=== PATIENT | male | born 1970 | race Caucasian/White ===

== ENCOUNTER 2018-04-01 18:38 | Inpatient (IN) | payer OTHER, MEDICAID ==
[~2018-04-01] VITALS: Ht 190.5 cm; Wt 88.0 kg
--- NOTE | ~2018-04-01 | DS ---
PATIENT:BHARATI AGUERO II :72 MEDICAL RECORD: [id number] DISCHARGE SUMMARY ADMISSION DATE: 04/01/18 DISCHARGE DATE: 04/03/18 DATE OF DISCHARGE: 04/03/2018 DIAGNOSES: 1. Acute anterior myocardial infarction. 2. Coronary artery disease. 3. Hyperlipidemia. 4. Percutaneous transluminal coronary angioplasty and stent to the left anterior descending and right coronary artery this admission. HOSPITAL COURSE: Mr. Aguero presents with an acute anterior myocardial infarction. Cardiac catheterization revealed 3-vessel coronary artery disease, underwent PTCA and stent of the RCA and LAD, was discharged home with the addition of aspirin, Plavix, Pravachol to his medical regimen. No beta-malorie was undertaken secondary to bradycardia. He did have ventricular tachycardia. At the time of the acute event, he was placed on Cordarone; however, this was discontinued due to the bradycardia. We will follow up next week for PTCA and stent of the circumflex. TRANSINT:[id number] Voice Confirmation ID: [id number] DOCUMENT ID: [id number] LUPE BEST MD at 0924 CC: [id number] DICTATION DATE: 04/03/18 1212 PARCEL CONTRACTOR: 04/04/18 0120 DIS IN 04/03/18 [address] [place] [address]
--- NOTE | ~2018-04-01 | OP ---
PATIENT NAME: BHARATI BATISTA II MEDICAL RECORD: [id number] :72 LOCATION:D.M2 D.2123 ADMISSION DATE:04/01/18 SURGEON: LUPE BEST MD DATE OF OPERATION: 04/01/2018 PROCEDURES: 1. Aortofemoral runoff. 2. Abdominal aortography. INDICATION: Claudication and peripheral vascular disease. PROCEDURE IN DETAIL: After informed consent was obtained and after a detailed description of risks, benefits as well as alternative therapies, the patient elected to proceed with aortofemoral runoff. The right femoral area had a preexisting sheath. All catheters exchanged through this sheath. FINDINGS: Abdominal aortography was performed. The catheter was pulled down for aortofemoral runoff. Abdominal aortography reveals no significant known aortic disease, no dissection or aneurysm formation. LEFT LEG: A. Iliac: The common iliac is devoid of disease. The external iliac has an ulcerated 70-80% stenosis in the proximal vessel. The internal iliac has no significant disease. B. Femoral system: The common superficial and deep femoral have moderate irregularities, but no flow-limiting stenosis. C. Popliteal and infrapopliteal vessels are widely patent with good 3-vessel runoff to the foot. RIGHT LEG: A. Iliac: The common iliac has 30% stenosis; however, this is not flow limiting. The internal iliac and external iliacs have mild plaquing, but not greater than 20%. B. Femoral system: The common, superficial and deep femoral have mild plaquing, none greater than 20%, no flow-limiting stenosis. Popliteal and infrapopliteal vessels are patent with good 3-vessel runoff on to the foot. OVERALL IMPRESSION: Ulcerated stenosis of the external iliac, left that is amenable to transcatheter revascularization in the future. TRANSINT:[id number] Voice Confirmation ID: [id number] DOCUMENT ID: [id number] LUPE BEST MD at 0924 CC: [id number] DICTATION DATE: 04/01/181954 ROADABILITY MACHINE OPERATOR: 04/02/182028 DIS IN 04/03/18 [facility] [address] [id number]
--- NOTE | ~2018-04-01 | OP ---
PATIENT NAME: BHARATI BATISTA II MEDICAL RECORD: [id number] :72 LOCATION:D.M2 D.3 ADMISSION DATE:04/01/18 SURGEON: LUPE BEST MD DATE OF OPERATION: 04/01/2018 PROCEDURES: 1. PTCA stent LAD. 2. Left heart catheterization. 3. Selective coronary angiography. 4. Left ventriculogram. INDICATION: Acute anterior myocardial infarction. PROCEDURE IN DETAIL: After informed consent was obtained and after a detailed description of the risks, benefits as well as alternative therapies, the patient elected to proceed with angiogram and angioplasty. The right femoral area was prepped and draped in normal sterile fashion. Right femoral artery was cannulated via modified Seldinger technique with placement of 6-Scottish sheath. All catheters exchanged through this sheath. FINDINGS: The left ventriculogram was performed in standard 30-degree GUERRERO view reveals preserved cardiac wall motion throughout all segments, anteroapical hypokinesis, ejection fraction still at 60%. SELECTIVE CORONARY ANGIOGRAPHY: 1. Left main is with no significant angiographic disease. 2. Left anterior descending is totally occluded acutely proximally. 3. Left circumflex has multiple areas of 80+ percent stenosis. 4. Right coronary is a large, dominant vessel with 80+ percent stenosis mid vessel throughout. PTCA STENT OF THE LAD: Stents used were 3.0 x 26 mm Integrity and 2.25 x 15 mm Sadi. Result was 0% residual stenosis. OVERALL IMPRESSION: Successful percutaneous transluminal coronary angioplasty stent of the left anterior descending going from 100% initial stenosis with an acute myocardial infarction to 0% residual stenosis. PLAN: Percutaneous transluminal coronary angioplasty stent of the left circumflex and RCA in the near future. TRANSINT:[id number] Voice Confirmation ID: [id number] DOCUMENT ID: [id number] LUPE BEST MD at 0924 CC: [id number] DICTATION DATE: 04/01/181954 WELL SHOOTER: 04/01/182121 DIS IN 04/03/18 [address] [id number]
--- NOTE | ~2018-04-01 | MORECARE ---
CASE MANAGEMENT DISCHARGE SUMMARY PATIENT: BHARATI BATISTA II UNIT: [id number] ADM DATE: 04/01/18 AGE: 47 : 72 SEX: M ROOM/BED: D.2123 AUTHOR: SAMANTA ACEVEDO PHYSICIAN: REFERRING PHYSICIAN: LUPE BEST MD DATE OF SERVICE: 04/03/18 Discharge Plan Patient Name: BHARATI BATISTA [facility] [facility] 1970 Planned Disposition: Home Anticipated Discharge Date: 04/03/18 Discharge Date: Expected LOS: 2 Initial Reviewer: [email or web address] Initial Review Date: 04/03/2018 Generated: 04/03/18 2:36 pm DCPIA - Discharge Planning Initial Assessment Updated by [email or web address]: Brian Tuttle on 04/03/18 1:32 pm * Is the patient Alert and Oriented? Yes * How many steps to enter\exit or inside your home? * PCP NONE PATIENT REPORTS UNDERSTANDING AND ABILITY TO CONTACT HIS INSURANCE COMPANY FOR IN NETWORK PROVIDERS. * Pharmacy [facility] [address] * Preadmission Environment Home with Family * ADLs Independent * Equipment None * Other Equipment NO MEDICAL EQUIPMENT PROVIDER PREFERENCE * List name and contact numbers for known caregivers / representatives who currently or will assist patient after discharge: OSBALDO BATISTA, SPOUSE, * Verbal permission to speak to the caregivers and representatives has been obtained from the patient. Yes * Community resources currently utilized None * Please name any agencies selected above. NONE * Additional services required to return to the preadmission environment? No * Can the patient safely return to the preadmission environment? Yes * Has this patient been hospitalized within the prior 30 days at any hospital? No Last DP export: 04/03/18 12:18 Patient Name: BHARATI BATISTA Page 51921 at 1336 All edits/amendments must be made on the electronic document DICTATION DATE: 04/03/181335 CASINO CONTROLLER: LAURA 04/03/181335 RPT#: [id number] DC DATE: STATUS: ADM IN [facility] [address] [place] [address] END OF REPORT
--- NOTE | ~2018-04-01 | MORECARE ---
CASE MANAGEMENT DISCHARGE SUMMARY PATIENT: BHARATI BATISTA II UNIT: [id number] ADM DATE: 04/01/18 AGE: 47 : 72 SEX: M ROOM/BED: D.2123 AUTHOR: SAMANTA ACEVEDO PHYSICIAN: REFERRING PHYSICIAN: LUPE BEST MD DATE OF SERVICE: 04/03/18 Discharge Plan Patient Name: BHARATI BATISTA [facility] [facility] 1970 Planned Disposition: Home Anticipated Discharge Date: 04/03/18 Discharge Date: Expected LOS: 2 Initial Reviewer: [email or web address] Initial Review Date: 04/03/2018 Generated: 04/03/18 2:18 pm Patient Name: BHARATI BATISTA Page 69362 at 1318 All edits/amendments must be made on the electronic document DICTATION DATE: 04/03/18 1318 PATIENT FINANCIAL SERVICES SPECIALIST: LAURA 04/03/18 1318 RPT#: [id number] DC DATE: STATUS: ADM IN [facility] [address] [place] [address] END OF REPORT
--- NOTE | ~2018-04-01 | HEMODYNAMI ---
PATIENT:BHARATI BATISTA II MEDICAL RECORD: [id number] : 72 LOCATION:DCALI ADMISSION DATE: 04/01/18 Generatedon:04/01/201819:59 Patient name: BHARATI BATISTA Patient #: [id number] SSN: DO B: 1970 Date of study: 04/01/2018 Page: Of Hemodynamic Procedure Report Patient Data Patient Demographics Procedure consent was obtained First Name: BHARATI Gender: Male Last Name: LESTER Suffix: KOURTNEY Middle Initial: R : 1970 Patient #: [id number] Age: 47 year(s) Race: Unknown Additional ID: [id number] Contact details [address]: [address] [place] [address] ROAD State: [place] City: [place] Zip code: [address] Admission Admission Data Admission Date: 04/01/2018 Admission Time: 18:38 Procedure Procedure Types Cath Procedure Diagnostic Procedure LHC LHC w/Coronaries PCI Procedure AMI/SVG/METER TESTER PRIMARY PTCA or Stent AMI-BMS/DAYRON Initial Peripheral Cath Diagnostic Procedure Dental Laboratory Manager Peripheral Procedures Hyavw-Hrveieu-Tic-Off Procedure Description Procedure Date Procedure Date: 04/01/2018 Procedure Start Time: 19:34 Procedure End Time: 19:59 Procedure Staff Name Function Gadiel Ge MD Performing Physician Isai Mendez RT Monitor Imer Kaba RN Nurse Marcella Ewing RT Scrub Aicha Villarreal RN Nurse Procedure Data Cath Procedure Fluoroscopy Diagnostic fluoroscopy Total fluoroscopy Time: 4.4 time: 4.4 min min Diagnostic fluoroscopy Total fluoroscopy dose: 693 dose: 693 mGy mGy Contrast Material Contrast Material Type Amount (ml) Isovue 300 148 Entry Location Entry Primary Successful Side Size Upsize Upsize Entry Closure Succes sful Closure Location (Fr) 1 (Fr) 2 (Fr) Remarks Device Remarks Femoral Right 6 Fr Exoseal artery Short Estimated blood loss: 10 ml Diagnostic catheters Device Type Used For End Catheter Placement MULTIPACK 3DRC 5Fr Procedure catheter MULTIPACK Pigtail 5 Fr Procedure catheter Procedure Complications No complications Procedure Medications Medication Administration Route Dosage 0.9% NaCl I.V. 100 ml/hr Oxygen etCO2 Nasal cannula 2 l/min Lidocaine 2% added to field 20 Heparin Flush Bag added to field 2 bags (1000units/500ml NS) Integrilin (Bolus I.V. 7.3 ml 2mg/ml) Versed I.V. 2 mg Fentanyl I.V. 100 mcg Heparin Bolus I.V. 3000 units Amiodarone Loading 150 mg Dose (150mg/100ml D5W) unlisted medication I.V. drip 1 mg/min Versed I.V. 1 mg Hemodynamics Rest Heart Rate: 64 (bpm) Pressure Samples Time Site Value (mmHg) Purpose Heart Use Rate(bpm) 19:45 AO 82/48(63) Snapshot 71 Snapshots Pre Cath Intra NCS Post Cath Vital Signs Time Heart Resp SPO2 etCO2 NIBP (mmHg) Rhythm Pain Status Sedation Rate (ipm) (%) (mmHg) Level (bpm) 19:30:56 65 12 99 30 138/88(112) NSR w/ ST 10 (11) , 10(A) Elevation Unimaginable unspeakable 19:35:10 66 19 99 28 130/90(108) NSR w/ ST 10 (11) , 10(A) Elevation Unimaginable unspeakable 19:39:26 59 13 97 30 116/69(97) NSR w/ ST 0 (11) , No 9(A) Elevation pain 19:43:38 71 13 98 32 99/62(77) NSR w/ ST 0 (11) , No 9(A) Elevation pain 19:47:44 70 13 96 11.3 95/65(73) NSR 0 (11) , No 9(A) pain 19:51:48 67 14 98 0 99/63(80) NSR 0 (11) , No 10(A) pain 19:55:56 66 16 99 17.4 96/61(78) NSR 0 (11) , No 10(A) pain Medications Time Medication Route Dose Verified Delivered Reason Note s Effectiveness by by 19:30:21 0.9% NaCl I.V. 100 Gadiel Willams used for ml/hr Luma Kaba deputy bailiff 19:30:28 Oxygen etCO2 2 Gadiel Willams used for Nasal l/min Luma Kaba deputy bailiff cannula 19:30:34 Lidocaine 2% added 20ml Gadiel Ramesh for local to vial Luma Ge MD anesthetic field 19:30:40 Heparin Flush added 2 bags Gadiel Ramesh used for Bag to Luma Ge MD procedure (1000units/500ml field NS) 19:30:52 Integrilin I.V. 7.3 ml Gadiel Ramesh for Wast ed (Bolus 2mg/ml) Luma Ge MD anticoagulation 2.7 ml of vial 19:33:29 Versed I.V. 2 mg Gadiel Willams for sedation Luma Kaba RN 19:33:36 Fentanyl I.V. 100 Gadiel Willams for sedation mcg Luma Kaba RN 19:35:38 Versed I.V. 1 mg Gadiel Willams for sedation Luma Kaba RN 19:36:45 Heparin Bolus I.V. 3000 Gadiel Katzie for veri fied units Luma Kaba RN anticoagulation with dr ge 19:42:10 Amiodarone 150 mg Gadiel Willams for arrhythmia Loading Dose Luma Kaba RN (150mg/100ml D5W) 19:46:09 Amiodarone I.V. 1 Gadiel Willams for arrhythmia x12h rs 360mg/200 ml drip mg/min Luma Kaba RN Procedure Log Time Note 19:10:31 Isai Mendez RT(R) sent for patient. Start room use. 19:17:32 Time tracking: Call back (After hours or weekends) 19:17:38 Plan of Care:Hemodynamics will remain stable., Cardiac rhythm will remain stable., Comfort level will be maintained., Respiratory function will remain adequate., Patient/ family verbilizes understanding of procedure., Procedure tolerated without complication., Recovers from procedure without complications.. 19:28:06 Patient received from ED to CCL 1 Alert and oriented. Tansferred to table in Supine position. 19:28:06 Patient arrives emergently. 19:28:07 Warm blankets applied, and loyda hugger turned on for patient comfort. 19:28:07 Correct patient and procedure confirmed by team. 19:28:08 Signed procedure consent form obtained from patient. 19:28:09 ECG and BP/O2 sat monitors applied to patient. 19:29:53 Vital chart was started 19:30:21 0.9% NaCl 100 ml/hr I.V. was administered by Imer Kaba RN; used for procedure; 19:30:28 Oxygen 2 l/min etCO2 Nasal cannula was administered by Imer Kaba RN; used for procedure; 19:30:34 Lidocaine 2% 20ml vial added to field was administered by Gadiel Ge MD; for local anesthetic; 19:30:40 Heparin Flush Bag (1000units/500ml NS) 2 bags added to field was administered by Gadiel Ge MD; used for procedure; 19:30:52 Integrilin (Bolus 2mg/ml) 7.3 ml I.V. was administered by Gadiel Ge MD; for anticoagulation; Wasted 2.7 ml of vial 19:31:32 Baseline sample Acquired. 19:31:37 Rhythm: sinus rhythm 19:31:38 Full Disclosure recording started 19:31:41 H&P Date Dictated: 04/01/2018 Emergent; H&P N/A. 19:31:42 Pre-procedure instructions explained to patient. 19:31:42 Pre-op teaching completed and patient verbalized understanding. 19:31:44 Family in waiting room. 19:31:45 Patient NPO since Midnight. 19:31:47 Is the patient allergic to Iodine/contrast media? No. 19:31:49 Is patient on blood thinner?Yes 19:31:52 ACC The patient was administered the following blood thiners within the last 24 hours: ACCPlavix 19:32:03 Loaded in the ER 19:32:06 Patient diabetic? No. 19:32:09 Previous problem with sedation/anesthesia? No ? 19:32:09 Snore? Yes 19:32:10 Sleep apnea? No 19:32:11 Deviated septum? No 19:32:12 Opens mouth fully? Yes 19:32:13 Sticks out tongue? Yes 19:32:15 Airway obstruction? No ? 19:32:17 Dentures? No ? 19:32:21 Pre procedure: right dorsailis pedis pulse 1+ Palpable, but thready & weak; easily obliterated 19:32:23 Patient pain scale 0/10 ?. 19:32:28 IV patent on arrival in right forearm with 0.9% NaCl at [facility]. 19:32:31 Lab results completed and on chart. 19:32:35 Right groin area was prepped with chlora-prep and draped in sterile fashion 19:32:36 Alarms reviewed by R. N. 19:32:37 Sharps counted by scrub and verified by R.N. 19:32:38 --------ALL STOP TIME OUT------ 19:32:39 Final Timeout: patient, procedure, and site verified with staff and physician. All members of the team are in agreement. 19:32:42 Right groin site verified by team. 19:32:45 Physical assessment completed. ASA score P 3 - A patient with severe systemic disease as per Gadiel Ge MD. 19:32:48 Sedation plan: IV Moderate Sedation Medication:Versed, Fentanyl 19:33:29 Versed 2 mg I.V. was administered by Imer Kaba RN; for sedation; 19:33:36 Fentanyl 100 mcg I.V. was administered by Imer Kaba RN; for sedation; 19:34:39 Use device set Femoral Dx 19:34:41 Use device set TAUTH PCI 19:34:44 Procedure started. 19:34:47 Local anesthetic to right femoral artery with Lidocaine 2% by Gadiel Ge MD.INITIAL ACCESS ONLY 19:34:49 Tegaderm 4 x 4 (1626W) opened to sterile field. 19:34:50 ACIST Manifold (33039) opened to sterile field. 19:34:52 ACIST Hand Control (59999) opened to sterile field. 19:34:52 ACIST Syringe (78169) opened to sterile field. 19:34:53 Bag Decanter (2001S) opened to sterile field. 19:34:54 Medline Cath Pack ([id number]) opened to sterile field. 19:34:54 DIAGNOSTIC WIRE .035 260cm J wire (183753) opened to sterile field. 19:34:57 DIAGNOSTIC Multipack 5Fr catheter set (BH1554) opened to sterile field. 19:34:58 INFLATOR Merit BasixCompak (EF2488) opened to sterile field. 19:35:03 CHOICE PT Extra Support 182cm wire ([id number]) opened to sterile field. 19:35:05 SHEATH Prelude 6Fr 0.035 (UKM-4W-74-035) opened to sterile field. 19:35:15 GUIDE 6FR XB 3.5 catheter ([id number]) opened to sterile field. 19:35:31 A 6 Fr Short sheath was inserted into the Right Femoral artery 19:35:38 Versed 1 mg I.V. was administered by Imer Kaba RN; for sedation; 19:35:39 6 Fr XB 3.5 guide catheter was inserted over the wire 19:35:50 CPTXS wire advanced. 19:36:45 Heparin Bolus 3000 units I.V. was administered by Imer Kaba RN; for anticoagulation; verified with dr ge 19:36:53 Wire advanced across lesion. 19:37:44 Inflate balloon Inflation number: 1 A EUPHORA 3.5 x 15 Balloon ([id number]) was prepped and advanced across the Mid LAD, then inflated to 11 CONNIE for 0:10 (min:sec). 19:39:29 Balloon removed over the wire. 19:40:24 Place stent Inflation Number: 2 A INTEGRITY RX 3.0 x 26 stent ([id number]) was prepped and advanced across the Mid LAD. The stent was deployed at 15 CONNIE for 0:10 (min:sec). 19:41:52 Stent catheter was removed intact over wire. 19:42:10 Amiodarone Loading Dose (150mg/100ml D5W) 150 mg was administered by Imer Kaba RN; for arrhythmia; 19:42:25 Place stent Inflation Number: 1 A JUAN RX 2.25 x 15 stent ([id number]) was prepped and advanced across the Dist LAD. The stent was deployed at 13 CONNIE for 0:10 (min:sec). 19:43:26 Stent catheter was removed intact over wire. 19:43:28 Wire removed. 19:43:28 Guide catheter removed. 19:43:33 A MULTIPACK 3DRC 5Fr catheter was advanced over the wire and used for Procedure. 19:44:13 RCA angiography performed. 19:44:20 Catheter removed. 19:44:30 A MULTIPACK Pigtail 5 Fr catheter was advanced over the wire and used for Procedure. 19:44:55 LV angiography performed. 19:44:56 LV gram done using GUERRERO 19:45:18 EF : 55 % 19:45:36 Injector settings: Ml/sec: 10, Volume: 20, 19:45:45 Abdominal Aortagram was performed. 19:45:47 Right leg runoff performed. 19:45:48 Left leg runoff performed. 19:46:09 Amiodarone 360mg/200 ml 1 mg/min I.V. drip was administered by Imer Kaba RN; for arrhythmia; x12hrs 19:46:29 Procedure type changed to Cath procedure, Diagnostic procedure, LHC, LHC w/Coronaries, PCI procedure, AMI/SVG/METER TESTER PRIMARY PTCA or Stent, AMI-BMS/DAYRON Initial, Peripheral Cath Diagnostic Procedure, Dental Laboratory Manager Peripheral Procedures, Kihgz-Edtmjfv-Qmh-Off 19:46:41 Catheter removed. 19:46:48 EXOSEAL 6Fr (EX600) opened to sterile field. 19:47:09 Sheath removed intact; hemostasis achieved with Exoseal to the Right Femoral artery. 19:47:11 Procedure ended.(Physican Out) 19:50:26 Fluoroscopy time 04.40 minutes. 19:50:39 Fluoroscopy dose: 693 mGy 19:50:39 Flurop Dose total: 693 19:50:47 Contrast amount:Isovue 300 148ml. 19:50:48 Sharps counted by scrub and verified by R.N. 19:50:49 Insertion/operative site no bleeding no hematoma. 19:50:53 Post-op/insertion site Right Femoral artery dressed using a 4 x 4 and Tegaderm. 19:50:55 Post Procedure Pulses reassessed and unchanged 19:50:58 Post-procedure physical assessment completed. ASA score P 2 - A patient with mild systemic disease as per Gadiel Ge MD. 19:51:01 Post procedure rhythm: unchanged. 19:51:04 Estimated blood loss: 10 ml 19:51:06 Post procedure instruction explained to patient.Patient verbalizes understanding. 19:51:07 Patient needs reinforcement of post procedure teaching. 19:51:30 Procedure and supply charges have been captured, reviewed, submitted and are correct. 19:51:33 Procedure Complication : No complications 19:58:57 Vital chart was stopped 19:58:57 See physician's report for complete and final results. 19:59:00 Report given to ICU. 19:59:03 Patient transfered to ICU with Bed. 19:59:06 Procedure ended. 19:59:06 Full Disclosure recording stopped 19:59:15 End room use (Document Last) Intervention Summary Intervention Notes Time ActionType Lesion and Equipment Used Action# Pressure Duration Attributes 19:37:44 Inflate Mid LAD EUPHORA 3.5 x 1 11 00:10 balloon 15 Balloon ([id number]) 19:40:24 Place stent Mid LAD INTEGRITY RX 2 15 00:10 3.0 x 26 stent ([id number]) 19:42:25 Place stent Dist LAD JUAN RX 2.25 x 1 13 00:10 15 stent ([id number]) Device Usage Item Name Manufacture Quantity Catalog Number Hospital Part Current Minimal Lot# / Charge Number Stock Stock Serial# Code Tegaderm 4 x 4 3M 1 [id number] [id number] [id number] 5 (1626W) ACIST Manifold Acist 1 62469 330313 735373 014448 5 (60002) [employer] Inc ACIST Hand Acist 1 97437 562534 772883 164142 5 Control (58597) [employer] Inc ACIST Syringe Acist 1 99933 062970 825214 214530 20 (35219) [employer] Systems Inc Bag Decanter Microtek 1 2001S 481283 84037 688432 5 (2001S) Medical Inc. Medline Cath Cardinal 1 [id number] 766666 77929 373273 5 Pack Health ([id number]) DIAGNOSTIC WIRE [place] 1 037455 321652 286033 529887 30 .035 260cm J wire (760133) DIAGNOSTIC Cardinal 1 SY0308 175307 77078 915979 30 Multipack 5Fr Health catheter set (NV0189) INFLATOR Merit Merit 1 IP7614 546629 881030 578769 15 [facility] (YM4567) CHOICE PT Extra [place] 1 [id number] 468838 516872 975582 5 Support 182cm Scientific wire ([id number]) SHEATH Prelude Merit 1 CAZ-8Q-38-35 098504 5421878 279752 5 6Fr 0.035 Medical (CAJ-8L-95-035) GUIDE 6FR XB Cardinal 1 [id number] 738571 135575 505379 2 3.5 catheter Health (39827912) EUPHORA 3.5 x Medtronic 1 [id number] 102325 054294 377058 5 [id number] 15 Balloon ([id number]) INTEGRITY RX Medtronic 1 [id number] 401756 423991 759915 5 [id number] 3.0 x 26 stent ([id number]) JUAN RX 2.25 x Medtronic 1 [id number] 410060 6034116 041060 5 [id number] 15 stent ([id number]) MULTIPACK 3DRC Cardinal 1 464867 5 5Fr catheter Health MULTIPACK Cardinal 1 276498 5 Pigtail 5 Fr Health catheter EXOSEAL 6Fr Cardinal 1 EX600 977709 695717 250082 10 (EX600) Health Signature Audit [place] Stage Time Signature Unsigned Intra-Procedure 04/01/2018 Isai Mendez 7:59:49 PM RT(R) Signatures Monitor : Isai Mendez RT Signature : Date : Time : [address] [address]
--- NOTE | ~2018-04-01 | HEMODYNAMI ---
PATIENT:BHARATI BATISTA II MEDICAL RECORD: [id number] : 72 LOCATION:[facility] D.2304 ADMISSION DATE: 04/01/18 Generatedon:04/02/201812:24 Patient name: BHARATI BATISTA Patient #: [id number] SSN: DO B: 1970 Date of study: 04/02/2018 Page: Of Hemodynamic Procedure Report Patient Data Patient Demographics Procedure consent was obtained First Name: BHARATI Gender: Male Last Name: LESTER Suffix: II Middle Initial: R : 1970 Patient #: [id number] Age: 47 year(s) Race: Unknown Additional ID: [id number] Contact details Address: [address] [place] [address] RO[address] State: [place] City: [place] Zip code: [address] Past Medical History Allergies: No known allergies Admission Admission Data Admission Date: 04/01/2018 Admission Time: 20:00 Room #: D2304 Procedure Procedure Types Cath Procedure PCI Procedure Coronary Stent Coronary Stent Initial Peripheral vascular Intervention Stent Stent Iliac w/plasty Initial Procedure Description Procedure Date Procedure Date: 04/02/2018 Procedure Start Time: 12:11 Procedure End Time: 12:23 Procedure Staff Name Function Gadiel Ge MD Performing Physician Viviane Villatoro RT Monitor Lexie Obando RT Scrub Hang Francis RN Nurse Procedure Data Cath Procedure Fluoroscopy Diagnostic fluoroscopy Total fluoroscopy Time: 2.3 time: 2.3 min min Diagnostic fluoroscopy Total fluoroscopy dose: 198 dose: 198 mGy mGy Contrast Material Contrast Material Type Amount (ml) Isovue 300 58 Entry Location Entry Primary Successful Side Size (Fr) Upsize Upsize Entry Closure S uccessful Closure Location 1 (Fr) 2 (Fr) Remarks Device Remarks Femoral Left 6 Fr 6 Fr artery Mid-Length Short Estimated blood loss: 10 ml Procedure Complications No complications Procedure Medications Medication Administration Route Dosage 0.9% NaCl I.V. 100 ml/hr Oxygen etCO2 Nasal cannula 2 l/min Heparin Flush Bag added to field 2 bags (1000units/500ml NS) Lidocaine 2% added to field 20 Heparin Bolus I.V. 4000 units Versed I.V. 2 mg Fentanyl I.V. 100 mcg Hemodynamics Rest Heart Rate: 62 (bpm) Snapshots Pre Cath Intra NCS Post Cath Vital Signs Time Heart Resp SPO2 etCO2 NIBP Rhythm Pain Sedation Rate (ipm) (%) (mmHg) (mmHg) Status Level (bpm) 11:53:32 60 15 99 28.8 113/76(88) NSR 0 (11) 10(A) , No pain 11:57:38 56 12 98 39.4 109/72(83) NSR 0 (11) 10(A) , No pain 12:01:44 61 11 98 36.4 102/66(81) NSR 0 (11) 10(A) , No pain 12:05:50 56 14 97 38.7 98/54(69) NSR 0 (11) 10(A) , No pain 12:09:51 57 11 93 22 99/65(78) NSR 0 (11) 9(A) , No pain 12:13:55 55 15 97 14.4 100/62(78) NSR 0 (11) 9(A) , No pain 12:17:59 56 19 92 0 102/60(70) NSR 0 (11) 10(A) , No pain 12:22:00 60 11 96 0 98/69(81) NSR 0 (11) 10(A) , No pain Medications Time Medication Route Dose Verified Delivered Reason Notes Effectiveness by by 11:53:00 0.9% NaCl I.V. 100 Hang Hang Per physician ml/hr Penny Francis RN RN 11:53:11 Oxygen etCO2 2 Hang Hang Per physician Nasal l/min Penny Francis cannula RN RN 11:53:21 Heparin Flush added 2 Hang Hang used for Bag to bags Penny Francis procedure (1000units/500ml [facility] SINGH RN NS) 11:53:32 Lidocaine 2% added 20ml Hang Hang for local to vial Penny Francis anesthetic [facility] SINGH RN 12:11:07 Versed I.V. 2 mg Hang Hang for sedation Penny Francis RN RN 12:11:19 Fentanyl I.V. 100 Hang Hang for sedation mcg Lorigan Lorigan RN RN 12:12:28 Heparin Bolus I.V. Nawaf Mauricio for units Penny Francis anticoagulation RN grinding operator Log Time Note 11:35:27 Lexie Obando RT(R) sent for patient. Start room use. 11:35:28 Time tracking: Regular hours (M-F 7:00 - 5:00) 11:35:33 Plan of Care:Hemodynamics will remain stable., Cardiac rhythm will remain stable., Comfort level will be maintained., Respiratory function will remain adequate., Patient/ family verbilizes understanding of procedure., Procedure tolerated without complication., Recovers from procedure without complications.. 11:52:13 Patient received from ICU to CCL 2 Alert and oriented. Tansferred to table in Supine position. 11:52:14 Warm blankets applied, and loyda hugger turned on for patient comfort. 11:52:14 Correct patient and procedure confirmed by team. 11:52:17 Signed procedure consent form obtained from patient. 11:52:19 ECG and BP/O2 sat monitors applied to patient. 11:52:22 Vital chart was started 11:52:24 Baseline sample Acquired. 11:52:29 Full Disclosure recording started 11:52:36 H&P Date Dictated: 04/01/2018 Within 30 days and on chart., H&P Addendum completed by physician on day of procedure. (MUST COMPLETE FOR ALL OUTPATIENTS). 11:52:39 Pre-procedure instructions explained to patient. 11:52:42 Family unavailable. 11:52:44 Patient NPO since Midnight. 11:52:50 Patient allergic to No known allergies 11:53:00 0.9% NaCl 100 ml/hr I.V. was administered by Hang Francis RN; Per physician; 11:53:02 Is the patient allergic to Iodine/contrast media? No. 11:53:03 Was the patient premedicated? Yes 11:53:04 Is patient on blood thinner?Yes 11:53:09 ACC The patient was administered the following blood thiners within the last 24 hours: ACCPlavix 11:53:11 Oxygen 2 l/min etCO2 Nasal cannula was administered by Hang Francis RN; Per physician; 11:53:21 Heparin Flush Bag (1000units/500ml NS) 2 bags added to field was administered by Hang Francis RN; used for procedure; 11:53:23 Snore? Yes 11:53:31 Sleep apnea? No 11:53:32 Lidocaine 2% 20ml vial added to field was administered by Hang Francis RN; for local anesthetic; 11:53:32 Deviated septum? No 11:53:35 Opens mouth fully? Yes 11:53:36 Sticks out tongue? Yes 11:53:43 Dentures? No ? 11:53:49 Patient pain scale 0/10 ?. 11:54:00 IV patent on arrival in right forearm with 0.9% NaCl at [facility]. 11:54:05 Lab results completed and on chart. 11:54:10 Left groin area was prepped with chlora-prep and draped in sterile fashion 11:54:11 Alarms reviewed by R. N. 11:54:12 Sharps counted by scrub and verified by R.N. 11:54:13 Physician paged 12:00:42 Use device set Femoral Dx 12:00:45 ACIST Syringe (90072) opened to sterile field. 12:00:45 Bag Decanter (2002S) opened to sterile field. 12:00:46 Medline Cath Pack ([id number]) opened to sterile field. 12:00:47 DIAGNOSTIC WIRE .035 260cm J wire (698651) opened to sterile field. 12:00:49 ACIST Hand Control (28662) opened to sterile field. 12:00:49 ACIST Manifold (89451) opened to sterile field. 12:00:51 Tegaderm 4 x 4 (1626W) opened to sterile field. 12:00:52 PERCUTANEOUS ENTRY 19GA needle opened to sterile field. 12:04:02 SHEATH Prelude 6Fr 0.035 (NCK-3L-50-035) opened to sterile field. 12:04:02 CHOICE PT Extra Support 182cm wire ([id number]) opened to sterile field. 12:04:03 INFLATOR Merit Maryk (FG9538) opened to sterile field. 12:10:39 Physician arrived 12:10:40 --------ALL STOP TIME OUT------ 12:10:40 Final Timeout: patient, procedure, and site verified with staff and physician. All members of the team are in agreement. 12:10:42 Left groin site verified by team. 12:10:46 Physical assessment completed. ASA score P 2 - A patient with mild systemic disease as per Gadiel Ge MD. 12:10:49 Sedation plan: IV Moderate Sedation Medication:Versed, Fentanyl 12:11:00 Procedure started. 12:11:07 Versed 2 mg I.V. was administered by Hang Francis RN; for sedation; 12:11:10 Local anesthetic to left femerol artery with Lidocaine 2% by Gadiel Ge MD.INITIAL ACCESS ONLY 12:11:19 Fentanyl 100 mcg I.V. was administered by Hang Francis RN; for sedation; 12:11:26 A 6 Fr Mid-Length sheath was inserted into the Left Femoral artery 12:11:43 SHEATH 6FR ARROW 45cm (CL-37279) opened to sterile field. 12:11:59 SHEATH Prelude 6Fr 0.035 (HFW-0L-66-035) opened to sterile field. 12:12:28 Heparin Bolus 4000 units I.V. was administered by Hang Francis RN; for anticoagulation; 12:13:22 left illiac aniogram 12:15:19 Procedure type changed to Cath procedure, PCI procedure, Coronary Stent, Coronary Stent Initial, Peripheral vascular Intervention, Stent, Stent Iliac w/plasty Initial 12:15:42 Place stent Inflation Number: 1 A BAUDILIO 8 x 29 x 135 stent ([id number]) was prepped and advanced across the Mid Common Iliac, Left. The stent was deployed at 13 CONNIE for 0:00 (min:sec). 12:15:56 Stent removed. 12:16:30 GUIDE 6FR AR 2.0 catheter ([id number]) opened to sterile field. 12:16:39 6 Fr AR2 guide catheter was inserted over the wire 12:16:45 choice pt wire advanced. 12:16:49 Wire advanced across lesion. 12:18:13 Place stent Inflation Number: 1 A INTEGRITY RX 3.5 x 12 stent ([id number]) was prepped and advanced across the Dist RCA. The stent was deployed at 17 CONNIE for 0:10 (min:sec). 12:19:31 Sheath upsized to a 6 Fr Short. 12:19:40 EXOSEAL 6Fr (EX600) opened to sterile field. 12:19:47 Procedure ended.(Physican Out) 12:20:44 Fluoroscopy time 02.30 minutes. 12:20:49 Flurop Dose total: 198 12:20:49 Fluoroscopy dose: 198 mGy 12:20:56 Contrast amount:Isovue 300 58ml. 12:20:59 Sharps counted by scrub and verified by R.N. 12:21:06 Insertion/operative site no bleeding no hematoma. 12:21:11 Post left femerol artery:stable 12:21:14 Post Procedure Pulses reassessed and unchanged 12:21:18 Post-procedure physical assessment completed. ASA score P 2 - A patient with mild systemic disease as per Gadiel Ge MD. 12:21:21 Post procedure rhythm: unchanged. 12:21:24 Estimated blood loss: 10 ml 12:21:26 Post procedure instruction explained to patient.Patient verbalizes understanding. 12:22:24 Procedure and supply charges have been captured, reviewed, submitted and are correct. 12:22:55 Procedure Complication : No complications 12::58 Vital chart was stopped 12::58 See physician's report for complete and final results. 12:23:02 Report given to ICU. 12:23:06 Patient transfered to ICU with Stretcher. 12:23:09 Procedure ended. 12:23:09 Full Disclosure recording stopped 12:23:11 End room use (Document Last) 12:23:18 ACC-PCI Only Patient was given prescriptions, or instructed by Gadiel Ge MD to start/continue the following medications upon discharge: Plavix Intervention Summary Intervention Notes Time ActionType Lesion and Equipment Action# Pressure Duration Attributes Used 12:15:42 Place stent Mid Common BAUDILIO 8 x 1 13 00:00 Iliac, Left 29 x 135 stent ([id number]) 12:18:13 Place stent Dist RCA INTEGRITY RX 1 17 00:10 3.5 x 12 stent ([id number]) Device Usage Item Name Manufacture Quantity Catalog Number Hospital Part Current Minimal Lot# / Charge Number Stock Stock Serial# Code ACIST Syringe Acist 1 95895 129267 432342 [id number] 20 (79119) Medical [employer]ne[employer] llc Inc Bag Decanter Microtek 1 653327 16812 669483 5 () Medical Inc. Medline Cath Cardinal 1 [id number] 324103 15875 502323 5 Livekick [facility] ([id number]) DIAGNOSTIC WIRE [place] 1 857175 811402 487550 870556 30 .035 260cm J wire (294711) ACIST Hand Acist 1 43697 415848 021374 781937 5 Control (42272) Medical Systems Inc ACIST Manifold Acist 1 52848 285013 075658 833855 5 (04343) Medical Systems Inc Tegaderm 4 x 4 3M 1 1626W 745529 249770 900361 5 (1626W) PERCUTANEOUS Cook Medical 1 B12402 419596 167336 5 ENTRY 19GA needle SHEATH Prelude Merit 2 UNV-5I-02-35 989418 8414970 328306 5 6Fr 0.035 Medical (NVM-7C-47-035) CHOICE PT Extra [place] 1 [id number] 895576 701344 378533 5 Support 182cm Scientific wire ([id number]) INFLATOR Merit Merit 1 [id number] 744767 332306 838909 15 PlayMaker CRMlaGroove Medical ([id number]) SHEATH 6FR Teleflex 1 CL-05986 540047 080481 844855 5 ARROW 45cm (CL-23151) BAUDILIO 8 x 29 Cardinal 1 [id number] 328780 073460 5 [id number] x 135 stent Health ([id number]) GUIDE 6FR AR Medtronic 1 [id number] 951993 94225 846131 1 2.0 catheter ([id number]) INTEGRITY RX Medtronic 1 [id number] 969641 658121 916640 5 [id number] 3.5 x 12 stent ([id number]) EXOSEAL 6Fr Cardinal 1 EX600 280838 670648 692735 10 (EX600) Health Signature Audit [place] Stage Time Signature Unsigned Intra-Procedure 04/02/2018 Viviane Villatoro 12:24:35 PM RT(R) Signatures Monitor : Viviane Villatoro Signature : RT Date : Time : [facility] [address] [place] [address]
--- NOTE | ~2018-04-01 | HP ---
PATIENT: BHARATI AGUERO II MEDICAL RECORD: [id number] ACCOUNT: [id number] LOCATION:[address] : 72 ADMISSION DATE: 04/01/18 PCP: No PCP HISTORY AND PHYSICAL EXAMINATION DIAGNOSES: 1. Acute anterior myocardial infarction. 2. Coronary artery disease. 3. Peripheral vascular disease. 4. Claudication. 5. Hyperlipidemia. HISTORY OF PRESENT ILLNESS: Mr. Aguero has no cardiac history, began having chest pains 30 minutes prior to admission. He is found to have an acute ST elevation myocardial infarction. PHYSICAL EXAMINATION: GENERAL APPEARANCE: Well-nourished, well-developed, appears stated age. Level of distress, comfortable. PSYCHIATRIC: Mental status, alert, normal affect. Orientation, oriented to time, place and person. EYES: Lids and conjunctiva, noninjected. No discharge, no pallor. ENT: Lips, teeth, gums, normal dentition. Oropharynx, no cyanosis, no pallor. NECK: Carotid arteries, bilateral normal upstroke, no bruits, no thrills. JUGULAR VEINS: No jugular venous pressure or distention. CERVICAL LYMPH NODES: Nontender, nonenlarged. THYROID: Not enlarged. Nontender. No nodules. LUNGS: Respiratory effort, unlabored. CHEST: Normal curvature. No thoracic deformity. No chest wall tenderness. Percussion, resonant. Auscultation, clear. No wheezes, no rales, no rhonchi. CARDIOVASCULAR: Precordial exam, nondisplaced. No heaves or pericardial thrills. Rate and rhythm, regular. Heart sounds, normal S1, normal S2. No S3, no gallop, no rub. Systolic murmur, not heard. Diastolic murmur, not heard. EXTREMITIES: No cyanosis, no edema. Peripheral pulses, full and equal in all extremities, except as noted. No bruits appreciated. ABDOMEN: Soft, nondistended. Normal aorta. No bruit. Nontender. No masses. Liver, nontender, no hepatomegaly. Spleen, nontender, no splenomegaly. MUSCULOSKELETAL: No joint tenderness. No joint swelling. No erythema. NEUROLOGICAL: Normal gait, normal strength, normal tone. SKIN: Warm and dry. REVIEW OF SYSTEMS: The patient reports easy bruising but reports no swollen glands. The patient reports no fever, no night sweats, no significant weight gain, no significant weight loss. No significant exercise tolerance. The patient reports no dry eyes, no irritation, no vision change. Patient reports no difficulty hearing and no ear pain. Patient reports no frequent nose bleeds or nose and sinus problems. Patient reports on arm pain on exertion. No shortness of breath while lying down. No history of heart murmur. Patient reports no cough, no wheezing or coughing up blood. Patient reports no abdominal pain, no vomiting. Normal appetite. No diarrhea and not vomiting blood. No nausea and no constipation. Patient reports no incontinence. No difficulty urinating. No hematuria. No increased frequency. Patient reports no muscle aches. No weakness, no arthralgias, no back pain. No swelling of the extremities. Patient reports no abnormal mole, no jaundice, no rashes. Reports no loss of consciousness. No weakness and no numbness. No seizures, dizziness, HISTORY AND PHYSICAL [id number] AGUERO,BHARATI R II or headaches. The patient reports no depression, no sleep disturbance, feeling safe in a relationship and no alcohol abuse. Patient reports on fatigue. Reports no runny nose or sinus pressure. No itching, no hives, and no frequent sneezing. OVERALL IMPRESSION: Acute anterior myocardial infarction. We will proceed with urgent cardiac catheterization for this life threatening event. Further care depends upon findings of the catheterization. TRANSINT:[id number] Voice Confirmation ID: [id number] DOCUMENT ID: [id number] LUPE BEST MD at 0924 CC: [id number] DICTATION DATE: 04/03/1839 BRIDGE GAME DIRECTOR: 04/03/18 1053 DIS IN 04/03/18 [place] [address] [place] [address]
--- NOTE | ~2018-04-01 | OP ---
PATIENT NAME: BHARATI BATISTA II MEDICAL RECORD: [id number] :72 LOCATION:D.M2 D.2123 ADMISSION DATE:04/01/18 SURGEON: LUPE BEST MD DATE OF OPERATION: 04/02/2018 PROCEDURES: 1. PTCA stent RCA. 2. Selective coronary angiography. 3. SENIOR HR BUSINESS PARTNER stent, left iliac. 4. Unilateral extremity angiography. INDICATION: Claudication, peripheral vascular disease, coronary artery disease, and angina. PROCEDURE IN DETAIL: After informed consent was obtained and after a detailed description of risks, benefits as well as alternative therapies, the patient elected to proceed with angiogram and angioplasty. The left femoral area was prepped and draped in normal sterile fashion. Left femoral artery was cannulated via modified Seldinger technique with placement of 6-Indonesian sheath. All catheters exchanged through this sheath. FINDINGS: The left iliac had an ulcerated 70+ percent stenosis. This was addressed with an 8 x 29 Cordis Sosa balloon and stent. Result was 0% residual stenosis. The right coronary artery has an 85% stenosis in the mid vessel. This was addressed with a 3.5 x 12 mm Integrity stent. Result was 0% residual stenosis. OVERALL IMPRESSION: 1. Successful percutaneous transluminal coronary angioplasty stent of the right coronary artery going from 85% initial stenosis to 0% residual. 2. Successful percutaneous transluminal angioplasty stent of the left iliac going from 70+ percent initial stenosis to 0% residual. TRANSINT:[id number] Voice Confirmation ID: [id number] DOCUMENT ID: [id number] LUPE BEST MD at 0924 CC: [id number] DICTATION DATE: 04/02/18 1225 DATA ANALYTICS SPECIALIST: 04/02/18 1248 DIS IN 04/03/18 [place] [address] [place] [id number]
--- NOTE | ~2018-04-01 | MORECARE ---
CASE MANAGEMENT DISCHARGE SUMMARY PATIENT: BHARATI BATISTA II UNIT: [id number] ADM DATE: 04/01/18 AGE: 47 : 72 SEX: M ROOM/BED: D.4133 AUTHOR: KRISTINA,DOC PHYSICIAN: REFERRING PHYSICIAN: LUPE BEST MD DATE OF SERVICE: 04/03/18 Discharge Plan Patient Name: BHARATI BATISTA Facility: [facility]:[place] : 1970 Planned Disposition: Home Anticipated Discharge Date: 04/03/18 Discharge Date: Expected LOS: 2 Initial Reviewer: [email or web address] Initial Review Date: 04/03/2018 Generated: 04/03/18 2:46 pm Comments DCP- Discharge Planning Updated by [email or web address]: Brian Tuttle on 04/03/18 12:[address] Patient Name: BHARATI BATISTA Admission Status: ER Accout number: [id number] Admission Date: 04-01-2018 : 1970 Admission Diagnosis: Attending: MO BEST Current LOS: 2 Anticipated DC Date: 04-03-2018 Planned Disposition: Home Primary Insurance: [employer] POS FLEXCARE Discharge Planning Comments: CM MET WITH PT IN ROOM TO DISCUSS DISCHARGE PLANNING AND NEEDS. PT REPORTS LIVING AT HOME INDEPENDENTLY WITH SPOUSE. PT HAS NO MEDICAL EQUIPMENT AND NO OUTSIDE SERVICES ASSISTING IN THE HOME. CM DISCUSSED AVAILABILITY OF HOME HEALTH, REHAB SERVICES AND MEDICAL EQUIPMENT. PT DENIES DISCHARGE NEEDS, REPORTS HIS SPUOSE IS HERE TO PICK HER UP FOR DISCHARGE HOME TODAY. PT HAS NO PRIMARY CARE DOCTOR AND REPORTS ABILITY TO CONTACT HIS INSURANCE COMPANY TO GET LIST OF IN NETWORK PROVIDERS TO SEEK PRIMARY CARE PHYSICIAN IF NEEDED. PT DENIES DISCHARGE NEEDS. COMPUTER GAME PROGRAMMER NURSE NOTIFIED. High School Professional: Brian Tuttle DCPIA - Discharge Planning Initial Assessment Updated by [id number]: Brian Tuttle on 04/03/18 1:32 pm * Is the patient Alert and Oriented? Yes * How many steps to enter\exit or inside your home? * PCP NONE PATIENT REPORTS UNDERSTANDING AND ABILITY TO CONTACT HIS INSURANCE COMPANY FOR IN NETWORK PROVIDERS. * Pharmacy [facility] [address] * Preadmission Environment Home with Family * ADLs Independent * Equipment None * Other Equipment NO MEDICAL EQUIPMENT PROVIDER PREFERENCE * List name and contact numbers for known caregivers / representatives who currently or will assist patient after discharge: OSBALDO BATISTA, SPOUSE, * Verbal permission to speak to the caregivers and representatives has been obtained from the patient. Yes * Community resources currently utilized None * Please name any agencies selected above. NONE * Additional services required to return to the preadmission environment? No * Can the patient safely return to the preadmission environment? Yes * Has this patient been hospitalized within the prior 30 days at any hospital? No Last DP export: 04/03/18 12:36 Patient Name: BHARATI BATISTA Page [id number] at 1346 All edits/amendments must be made on the electronic document DICTATION DATE: 04/03/18 134 PRECISION FARMING SPECIALIST: LAURA 04/03/18 1345 RPT#: [id number] DC DATE: STATUS: ADM IN [facility] [address] [place] [address] END OF REPORT
[2018-04-01 19:04] LABS: BASOPHILS 0.2 % (0-2); EOSINOPHILS 1.3 % (0-7); HEMATOCRIT 41.9 % (42.0-54.0); HEMOGLOBIN 14.9 g/dL (13.5-17.5); IMMATURE GRANULOCYTES 0.1 % (0-5); LYMPHOCYTES 32.5 % (15-50); MCH 31.7 pg (26.0-34.0); MCHC 35.6 g/dL (31.0-37.0); MCV 89.1 fL (80.0-100.0); MEAN PLATELET VOLUME 9.8 fL (7.4-10.4); MONOCYTES 6.3 % (2-11); NEUTROPHILS 59.6 % (40-80); PLATELET COUNT 174 10x3/uL (130-400); WBC 8.6 10x3/uL (4.8-10.8)
[2018-04-01 19:12] LABS: APTT 24.7 SECONDS (22.8-39.4); INR 1.14 (0.85-1.17); PROTIME 14.2 SECONDS (11.6-15.0)
[2018-04-01 19:25] LABS: ALKALINE PHOSPHATASE 57 U/L (46-116); ALT (SGPT) 26 U/L (10-68); BILIRUBIN - TOTAL 0.31 mg/dL (0.2-1.3); CALC OSMOLALITY 281 mosm/kg (275-300); CALCIUM 8.9 mg/dL (8.5-10.1); CARBON DIOXIDE 24.3 mmol/L (21.0-32.0); CHLORIDE - SERUM 102 mmol/L (98-107); CREATININE - SERUM 1.3 mg/dL (0.6-1.3); GLUCOSE 144 mg/dL (74-106); POTASSIUM - SERUM 3.4 mmol/L (3.5-5.1); PROTEIN - SERUM 7.4 g/dL (6.4-8.2); SODIUM 141 mmol/L (136-145); UREA NITROGEN 8 mg/dL (7-18); eGFR NON AFRICAN AMERICAN 63 mL/min (90-120)
[2018-04-01 19:41] LABS: CKMB 3.4 U/L (0.0-3.6); CREATINE KINASE 92 UL (21-232)
[2018-04-01 19:48] LABS: TROPONIN-I 0.543 ng/mL (0.000-0.060)
[2018-04-01 20:15] VITALS: BP 99/72
[2018-04-01 21:00] VITALS: BP 124/90
[2018-04-01 22:00] VITALS: BP 113/77
[2018-04-01 23:00] VITALS: BP 127/90
[2018-04-02] VITALS (19 sets, daily range): BP systolic 90–134; BP diastolic 65–93; Ht 190.5 cm; Wt 88.0 kg
[2018-04-03] VITALS: BP 106/70
[2018-04-03 07:27] VITALS: BP 106/62
[2018-04-03 12:10] VITALS: BP 115/71
[2018-04-03] MEDS ORDERED: PRAVACHOL40 MG PO (13:43)
[2018-04-03] MEDS ORDERED: ASPIRIN81 MG PO (13:43)
[2018-04-03] MEDS ORDERED: PLAVIX75 MG PO (13:44)
== END 2018-04-03 14:31 | disposition home or self-care (01) | DRG 247 ==
LOC: D.CATH 18:38 → D.ER 18:38 → EDSTATUS 19:14 → D.ICU 20:00 → D.M2 20:00
PROVIDERS: Family Medicine; Internal Medicine Interventional Cardiology
PROC: 4A023N7 Measurement of Cardiac Sampling and Pressure, Left Heart, Percutaneous Approach (ICD-10-PCS; 2018-04-01)
PROC: B2111ZZ Fluoroscopy of Multiple Coronary Arteries using Low Osmolar Contrast (ICD-10-PCS; 2018-04-01)
PROC: B2151ZZ Fluoroscopy of Left Heart using Low Osmolar Contrast (ICD-10-PCS; 2018-04-01)
PROC: B4101ZZ Fluoroscopy of Abdominal Aorta using Low Osmolar Contrast (ICD-10-PCS; 2018-04-01)
PROC: 02703DZ Dilation of Coronary Artery, One Artery with Intraluminal Device, Percutaneous Approach (ICD-10-PCS; principal; 2018-04-01 19:10)
PROC: 027034Z Dilation of Coronary Artery, One Artery with Drug-eluting Intraluminal Device, Percutaneous Approach (ICD-10-PCS; 2018-04-01 19:10)
PROC: 047D3DZ Dilation of Left Common Iliac Artery with Intraluminal Device, Percutaneous Approach (ICD-10-PCS; 2018-04-02)
PROC: 02703DZ Dilation of Coronary Artery, One Artery with Intraluminal Device, Percutaneous Approach (ICD-10-PCS; 2018-04-02)
DX: I21.09 ST elevation (STEMI) myocardial infarction involving other coronary artery of anterior wall (principal); I25.119 Atherosclerotic heart disease of native coronary artery with unspecified angina pectoris; I70.212 Atherosclerosis of native arteries of extremities with intermittent claudication, left leg; E78.5 Hyperlipidemia, unspecified

== ENCOUNTER 2018-04-07 14:42 | Outpatient (CLI) | payer OTHER ==
[~2018-04-07] VITALS: Ht 190.5 cm; Wt 86.4 kg
--- NOTE | ~2018-04-07 | HEMODYNAMI ---
PATIENT:BHARATI BATISTA II MEDICAL RECORD: [id number] : 72 LOCATION:[facility] ADMISSION DATE: 04/07/18 Generatedon:04/07/201810:36 Patient name: BHARATI BATISTA Patient #: [id number] SSN: DO B: 1970 Date of study: 04/07/2018 Page: Of Hemodynamic Procedure Report Patient Data Patient Demographics Procedure consent was obtained First Name: BHARATI Gender: Male Last Name: LESTER Suffix: II Middle Initial: R : 1970 Patient #: [id number] Age: 47 year(s) Race: Unknown Additional ID: [id number] Contact details [address]: [address] [place] [address] ROAD State: [place] City: [place] Zip code: [address] Past Medical History Allergies: No known allergies Admission Admission Data Admission Date: 04/07/2018 Admission Time: 9:30 Procedure Procedure Types Cath Procedure PCI Procedure Coronary Stent Coronary Stent Initial Procedure Description Procedure Date Procedure Date: 04/07/2018 Procedure Start Time: 10:26 Procedure End Time: 10:33 Procedure Staff Name Function Gadiel Ge MD Performing Physician Viviane Villatoro RT Monitor Lexie Obando RT Scrub Saravanan Morales RN Nurse Procedure Data Cath Procedure Fluoroscopy Diagnostic fluoroscopy Total fluoroscopy Time: 1.4 time: 1.4 min min Diagnostic fluoroscopy Total fluoroscopy dose: 202 dose: 202 mGy mGy Contrast Material Contrast Material Type Amount (ml) Isovue 300 34 Entry Location Entry Primary Successful Side Size Upsize Upsize Entry Closure Gongora ccessful Closure Location (Fr) 1 (Fr) 2 (Fr) Remarks Device Remarks Radial Right 6 Fr Mechanical artery Short Compression Estimated blood loss: 10 ml Procedure Complications No complications Procedure Medications Medication Administration Route Dosage Oxygen etCO2 Nasal cannula 2 l/min Heparin Flush Bag added to field 2 bags (1000units/500ml NS) 0.9% NaCl I.V. 100 ml/hr Radial Cocktail added to field 1 syringe (Verapomil 2mg/Nitro 400mcg/Heparin 1500units) Fentanyl I.V. 50 mcg Versed I.V. 1 mg Fentanyl I.V. 50 mcg Versed I.V. 1 mg Radial Cocktail I.A. 1 syringe (Verapomil 2mg/Nitro 400mcg/Heparin 1500units) Fentanyl I.V. 50 mcg Heparin Bolus I.V. 4000 units Fentanyl I.V. 50 mcg Hemodynamics Rest Heart Rate: 75 (bpm) Snapshots Pre Cath Intra NCS Post Cath Vital Signs Time Heart Resp SPO2 etCO2 NIBP Rhythm Pain Sedation Rate (ipm) (%) (mmHg) (mmHg) Status Level (bpm) 10:01:40 84 18 100 0 112/82(99) NSR 0 (11) 10(A) , No pain 10:05:41 77 17 100 0 107/77(92) NSR 0 (11) 10(A) , No pain 10:09:45 73 17 100 0 110/71(85) NSR 0 (11) 10(A) , No pain 10:13:49 73 17 100 0 106/76(88) NSR 0 (11) 10(A) , No pain 10:17:52 71 16 98 0 108/72(91) NSR 0 (11) 10(A) , No pain 10:21:58 70 16 99 0 101/67(81) NSR 0 (11) 10(A) , No pain 10:26:00 71 17 99 0 99/66(83) NSR 0 (11) 9(A) , No pain 10:30:04 71 17 94 0 102/61(77) NSR 0 (11) 9(A) , No pain 10:35:50 68 17 99 0 104/63(79) NSR 0 (11) 9(A) , No pain Medications Time Medication Route Dose Verified Delivered Reason Not es Effectiveness by by 10:01:45 Oxygen etCO2 2 l/min Gadiel Coe Per physician Nasal Luma Morales RN cannula 10:01:54 Heparin Flush added 2 bags Gadiel Coe used for Bag to Luma Morales beer coil cleaner (1000units/500ml field NS) 10:02:03 0.9% NaCl I.V. 100 Gadiel Coe Per physician ml/hr Luma Morales RN 10:02:12 Radial Cocktail added 1 Gadiel Coe used for (Verapomil to syringe Luma Morales RN procedure 2mg/Nitro field 400mcg/Heparin 1500units) 10:22:45 Fentanyl I.V. 50 mcg Gadiel Coe for sedation Luma Morales RN 10:22:52 Versed I.V. 1 mg Gadiel Coe for sedation Luma Morales RN 10:25:34 Fentanyl I.V. 50 mcg Gadiel Coe for sedation Luma Morales RN 10:25:37 Versed I.V. 1 mg Gadiel Coe for sedation Luma Morales RN 10:26:36 Radial Cocktail I.A. 1 Gadiel Ramesh for (Verapomil syringe Luma Ge MD vasodilation 2mg/Nitro 400mcg/Heparin 1500units) 10:27:18 Fentanyl I.V. 50 mcg Gadiel Coe for sedation Luma Morales RN 10:27:26 Heparin Bolus I.V. 4000 Gadiel Coe for units Luma Morales RN anticoagulation 10:29:32 Fentanyl I.V. 50 mcg Gadiel Coe for sedation uLma Morales RN Procedure Log Time Note 9:50:22 Viviane Villatoro RT(R) sent for patient. Start room use. 9:54:36 Diagnostic Cath Status : Elective 10:00:42 Vital chart was started 10:01:45 Oxygen 2 l/min etCO2 Nasal cannula was administered by Saravanan Morales RN; Per physician; 10:01:54 Heparin Flush Bag (1000units/500ml NS) 2 bags added to field was administered by Saravanan Morales RN; used for procedure; 10:02:03 0.9% NaCl 100 ml/hr I.V. was administered by Saravanan Morales RN; Per physician; 10:02:12 Radial Cocktail (Verapomil 2mg/Nitro 400mcg/Heparin 1500units) 1 syringe added to field was administered by Saravanan Morales RN; used for procedure; 10:04:23 Time tracking: Regular hours (M-F 7:00 - 5:00) 10:04:28 Plan of Care:Hemodynamics will remain stable., Cardiac rhythm will remain stable., Comfort level will be maintained., Respiratory function will remain adequate., Patient/ family verbilizes understanding of procedure., Procedure tolerated without complication., Recovers from procedure without complications.. 10:04:30 Patient arrives emergently. 10:04:35 Patient received from Pre/Post Procedure Room to CCL 2 Alert and oriented. Tansferred to table in Supine position. 10:04:37 Warm blankets applied, and loyda hugger turned on for patient comfort. 10:04:38 Correct patient and procedure confirmed by team. 10:04:39 Signed procedure consent form obtained from patient. 10:04:41 Baseline sample Acquired. 10:04:41 ECG and BP/O2 sat monitors applied to patient. 10:04:51 Rhythm: sinus rhythm 10:04:53 Full Disclosure recording started 10:06:20 H&P Date Dictated: 04/05/2018 Within 30 days and on chart., H&P Addendum completed by physician on day of procedure. (MUST COMPLETE FOR ALL OUTPATIENTS). 10:06:22 Pre-procedure instructions explained to patient. 10:06:23 Pre-op teaching completed and patient verbalized understanding. 10:06:24 Family in waiting room. 10:06:31 Patient NPO since Midnight. 10:06:41 Patient allergic to No known allergies 10:06:44 Is the patient allergic to Iodine/contrast media? No. 10:06:45 Was the patient premedicated? Yes 10:06:47 Is patient on blood thinner?Yes 10:06:49 ACC The patient was administered the following blood thiners within the last 24 hours: ACCPlavix 10:06:52 Patient diabetic? No. 10:06:56 Snore? Yes 10:06:58 Sleep apnea? No 10:07:00 Sticks out tongue? Yes 10:07:07 Patient pain scale 0/10 ?. 10:07:19 IV patent on arrival in left forearm with 0.9% NaCl at KVO. 10:07:34 Lab results completed and on chart. 10:07:37 Right Radial & Right Groin area was prepped with chlora-prep and draped in sterile fashion 10:07:38 Alarms reviewed by R. N. 10:07:39 Sharps counted by scrub and verified by R.N. 10:09:49 Physician paged 10:09:52 Use device set Radial Dx or PCI 10:09:54 ACIST Syringe (43352) opened to sterile field. 10:09:54 Medline Cath Pack ([id number]) opened to sterile field. 10:09:54 Bag Decanter (2001S) opened to sterile field. 10:09:55 DIAGNOSTIC WIRE .035 260cm J wire (958768) opened to sterile field. 10:09:55 ACIST Hand Control (15809) opened to sterile field. 10:09:56 ACIST Manifold (89885) opened to sterile field. 10:09:56 Tegaderm 4 x 4 (1626W) opened to sterile field. 10:09:59 MBrace Wrist Support ([id number]) opened to sterile field. 10:10:05 TR BAND Standard (ARS09IBI) opened to sterile field. 10:10:09 SHEATH 6Fr Prelude Radial ([id number]) opened to sterile field. 10:10:11 NEEDLE Cook 21G 4cm Radial ([id number]) opened to sterile field. 10:20:12 Physician arrived 10:20:12 --------ALL STOP TIME OUT------ 10:20:13 Final Timeout: patient, procedure, and site verified with staff and physician. All members of the team are in agreement. 10:20:15 Right Radial & Right Groin site verified by team. 10:20:18 Physical assessment completed. ASA score P 2 - A patient with mild systemic disease as per Gadiel Ge MD. 10:20:22 Sedation plan: IV Moderate Sedation Medication:Versed, Fentanyl 10:21:15 Zero performed for pressure channel P1 10:21:21 Zero performed for pressure channel P1 10:21:28 Zero performed for pressure channel P1 10:21:38 CHOICE PT Extra Support 182cm wire ([id number]) opened to sterile field. 10:21:39 INFLATOR Merit BasixCompak (QY7459) opened to sterile field. 10:22:45 Fentanyl 50 mcg I.V. was administered by Saravanan Morales RN; for sedation; 10:22:52 Versed 1 mg I.V. was administered by Saravanan Morales RN; for sedation; 10:24:46 Procedure started. 10:25:34 Fentanyl 50 mcg I.V. was administered by Saravanan Morales RN; for sedation; 10:25:37 Versed 1 mg I.V. was administered by Saravanan Morales RN; for sedation; 10::36 Radial Cocktail (Verapomil 2mg/Nitro 400mcg/Heparin 1500units) 1 syringe I.A. was administered by Gadiel Ge MD; for vasodilation; 10::54 Local anesthetic to right radial artery with Lidocaine 2% by Gadiel Ge MD.INITIAL ACCESS ONLY 10:27:07 A 6 Fr Short sheath was inserted into the Right Radial artery 10:27:12 J wire advanced. 10::18 Fentanyl 50 mcg I.V. was administered by Saravanan Morales RN; for sedation; 10:: Heparin Bolus 4000 units I.V. was administered by Saravanan Morales RN; for anticoagulation; 10:28:02 GUIDE 6FR XBLAD 3.5 catheter ([id number]) opened to sterile field. 10:28:15 6 Fr XBLAD3.5 guide catheter was inserted over the wire 10:28:17 Wire advanced across lesion. 10:28:33 Wire redirected to choice pt ex. 10::32 Fentanyl 50 mcg I.V. was administered by Saravanan Morales RN; for sedation; 10:30:00 Place stent Inflation Number: 1 A JUAN RX 2.5 x 18 stent ([id number]) was prepped and advanced across the Mid CX. The stent was deployed at 17 CONNIE for 0:09 (min:sec). 10:30:29 Stent catheter was removed intact over wire. 10:30:30 Wire removed. 10:31:08 Sheath removed intact; hemostasis achieved with Mechanical Compression to the Right Radial artery. 10:31:11 Procedure ended.(Physican Out) 10:31:20 Fluoroscopy time 01.40 minutes. :: Fluoroscopy dose: 202 mGy 10:: Flurop Dose total: 202 10::30 Contrast amount:Isovue 300 34ml. 10:31:32 Sharps counted by scrub and verified by R.N. 10:31:33 Insertion/operative site no bleeding no hematoma. 10:31:44 Post right radial artery:stable 10:31:45 Post Procedure Pulses reassessed and unchanged 10:32:08 Post-procedure physical assessment completed. ASA score P 2 - A patient with mild systemic disease as per Gadiel Ge MD. 10:32:12 Post procedure rhythm: unchanged. 10:32:18 Estimated blood loss: 10 ml 10:32:19 Post procedure instruction explained to patient.Patient verbalizes understanding. 10:32:26 Procedure type changed to Cath procedure, PCI procedure, Coronary Stent, Coronary Stent Initial 10:32:27 Procedure and supply charges have been captured, reviewed, submitted and are correct. 10:33:07 Procedure Complication : No complications 10:33:10 Vital chart was stopped 10:33:11 See physician's report for complete and final results. 10:33:22 Report given to Pre/Post Procedure Room. 10:33:25 Patient transfered to Pre/Post Procedure Room with Stretcher. 10:33:28 Procedure ended. 10:33:28 Full Disclosure recording stopped 10:33:31 End room use (Document Last) Intervention Summary Intervention Notes Time ActionType Lesion and Equipment Used Action# Pressure Duration Attributes 10:30:00 Place stent Mid CX JUAN RX 2.5 x 1 17 00:09 18 stent ([id number]) Device Usage Item Name Manufacture Quantity Catalog Number Hospital Part Current Minimal Lot# / Charge Number Stock Stock Serial# Code ACIST Syringe Acist 1 27720 [id number] 460969 271236 20 (13396) Medical Systems Inc Medline Cath Medline 1 [id number] 451415 49552 957222 5 Pack ([id number]) Bag Decanter Microtek 1 2001S 446280 23370 209600 5 (2001S) Medical Inc. DIAGNOSTIC WIRE [place] 1 858777 083963 658114 456399 30 .035 260cm J wire (328176) ACIST Hand Acist 1 62029 774201 309105 351165 5 Control (77171) [employer] Inc ACIST Manifold Acist 1 28393 748483 064484 145959 5 (52892) [employer] Inc Tegaderm 4 x 4 3M 1 1626W 977427 367001 277123 5 (1626W) MBrace Wrist Advanced 1 140-0250-00 346321 35303 372949 5 Support Vascular ([id number]) Dynamics TR BAND Terumo 1 [id number] 009105 512922 671271 40 Standard ([id number]) SHEATH 6Fr Merit 1 [id number] 553343 684997 690218 5 Prelude Radial Medical ([id number]) NEEDLE Cook 21G Cook Medical 1 U48248 251616 156498 100931 5 4cm Radial (Q53782) CHOICE PT Extra Lehr 1 [id number] 864041 997471 804563 5 Support 182cm Scientific wire ([id number]) INFLATOR Merit Merit 1 PL1332 023780 758840 426700 15 [facility] (RR0231) GUIDE 6FR XBLAD Cardinal 1 [id number] 007508 979551 025113 10 3.5 catheter Health ([id number]) JUAN RX 2.5 x Medtronic 1 [id number] 614226 2979777 278993 5 [id number] 18 stent ([id number]) Signature Audit [place] Stage Time Signature Unsigned Intra-Procedure 04/07/2018 Viviane Villatoro 10:36:38 AM RT(R) Signatures Monitor : Viviane Villatoro Signature : RT Date : Time : [place] [id number] [facility] [place] [address]
--- NOTE | ~2018-04-07 | HP ---
PATIENT: BHARATI AGUERO II MEDICAL RECORD: [id number] ACCOUNT: [id number] LOCATION:[facility]UNJ : 72 ADMISSION DATE: 04/07/18 PCP: LUPE BEST MD HISTORY AND PHYSICAL EXAMINATION DIAGNOSES: 1. Angina. 2. Coronary artery disease. 3. Hypertension. 4. Hyperlipidemia. 5. Peripheral vascular disease. HISTORY OF PRESENT ILLNESS: Mr. Aguero presents with a myocardial infarction, found to have 3-vessel coronary artery disease, underwent successful PTCA stent of the LAD and RCA as well as his left iliac. He is now brought back for PTCA stent of the left circumflex. PHYSICAL EXAMINATION: GENERAL APPEARANCE: Well-nourished, well-developed, appears stated age. Level of distress, comfortable. PSYCHIATRIC: Mental status, alert, normal affect. Orientation, oriented to time, place and person. EYES: Lids and conjunctiva, noninjected. No discharge, no pallor. ENT: Lips, teeth, gums, normal dentition. Oropharynx, no cyanosis, no pallor. NECK: Carotid arteries, bilateral normal upstroke, no bruits, no thrills. JUGULAR VEINS: No jugular venous pressure or distention. CERVICAL LYMPH NODES: Nontender, nonenlarged. THYROID: Not enlarged. Nontender. No nodules. LUNGS: Respiratory effort, unlabored. CHEST: Normal curvature. No thoracic deformity. No chest wall tenderness. Percussion, resonant. Auscultation, clear. No wheezes, no rales, no rhonchi. CARDIOVASCULAR: Precordial exam, nondisplaced. No heaves or pericardial thrills. Rate and rhythm, regular. Heart sounds, normal S1, normal S2. No S3, no gallop, no rub. Systolic murmur, not heard. Diastolic murmur, not heard. EXTREMITIES: No cyanosis, no edema. Peripheral pulses, full and equal in all extremities, except as noted. No bruits appreciated. ABDOMEN: Soft, nondistended. Normal aorta. No bruit. Nontender. No masses. Liver, nontender, no hepatomegaly. Spleen, nontender, no splenomegaly. MUSCULOSKELETAL: No joint tenderness. No joint swelling. No erythema. NEUROLOGICAL: Normal gait, normal strength, normal tone. SKIN: Warm and dry. REVIEW OF SYSTEMS: The patient reports easy bruising but reports no swollen glands. The patient reports no fever, no night sweats, no significant weight gain, no significant weight loss. No significant exercise tolerance. The patient reports no dry eyes, no irritation, no vision change. Patient reports no difficulty hearing and no ear pain. Patient reports no frequent nose bleeds or nose and sinus problems. Patient reports on arm pain on exertion. No shortness of breath while lying down. No history of heart murmur. Patient reports no cough, no wheezing or coughing up blood. Patient reports no abdominal pain, no vomiting. Normal appetite. No diarrhea and not vomiting blood. No nausea and no constipation. Patient reports no incontinence. No difficulty urinating. No hematuria. No increased frequency. Patient reports no muscle aches. No weakness, no arthralgias, no back pain. No swelling of the extremities. Patient reports no abnormal mole, no jaundice, no rashes. Reports HISTORY AND PHYSICAL [id number] BHARATI AGUERO II no loss of consciousness. No weakness and no numbness. No seizures, dizziness, or headaches. The patient reports no depression, no sleep disturbance, feeling safe in a relationship and no alcohol abuse. Patient reports on fatigue. Reports no runny nose or sinus pressure. No itching, no hives, and no frequent sneezing. OVERALL IMPRESSION: Anginal symptomatology with significant stenosis, left circumflex. We will proceed with PTCA stent of the left circumflex. TRANSINT:[id number] Voice Confirmation ID: [id number] DOCUMENT ID: [id number] LUPE BEST MD at 1914 CC: [id number] DICTATION DATE: 04/07/18 1023 GAGE DESIGNER: 04/07/18 1105 DEP CLI 04/07/18 [facility] [address] [place] [address]
--- NOTE | ~2018-04-07 | OP ---
PATIENT NAME: BHARATI BATISTA II MEDICAL RECORD: [id number] :72 LOCATION:D.CAT ADMISSION DATE: SURGEON: LUPE BEST MD DATE OF OPERATION: 04/07/2018 PROCEDURES: 1. PTCA stent left circumflex. 2. Selective coronary angiography. PROCEDURE IN DETAIL: After informed consent was obtained and after a detailed description of the risks, benefits as well as alternative therapies, the patient elected to proceed with angiogram and angioplasty. The right radial area was prepped and draped in normal sterile fashion. Right radial artery was cannulated via modified Seldinger technique with placement of 6-Bahraini sheath. All catheters exchanged through this sheath. FINDINGS: The left circumflex has 80% to 90% stenosis in the mid vessel. This was addressed with a 2.5 x 18 mm Cyril. Result was 0% residual stenosis. OVERALL IMPRESSION: Successful percutaneous transluminal coronary angioplasty stent of the left circumflex going from 80% to 90% initial stenosis to 0% residual. TRANSINT:[id number] Voice Confirmation ID: [id number] DOCUMENT ID: [id number] LUPE BEST MD at 1914 CC: [id number] DICTATION DATE: 04/07/18 1035 GAMMA OPERATOR: 04/07/18 1228 DEP CLI 04/07/18 [id number] [place] [address]
[2018-04-07 08:59] VITALS: BP 132/85; Ht 190.5 cm; Wt 86.4 kg
[2018-04-07 09:14] LABS: BASOPHILS 0.2 % (0-2); EOSINOPHILS 1.3 % (0-7); HEMATOCRIT 38.4 % (42.0-54.0); HEMOGLOBIN 13.4 g/dL (13.5-17.5); IMMATURE GRANULOCYTES 0.3 % (0-5); LYMPHOCYTES 20.9 % (15-50); MCH 31.2 pg (26.0-34.0); MCHC 34.9 g/dL (31.0-37.0); MCV 89.5 fL (80.0-100.0); MEAN PLATELET VOLUME 9.9 fL (7.4-10.4); MONOCYTES 9.4 % (2-11); NEUTROPHILS 67.9 % (40-80); PLATELET COUNT 203 10x3/uL (130-400); RBC 4.29 10x6/uL (4.20-6.10); RDW 13.3 % (11.5-14.5); WBC 10.1 10x3/uL (4.8-10.8)
[2018-04-07 09:21] LABS: CALC OSMOLALITY 278 mosm/kg (275-300); CALCIUM 9.1 mg/dL (8.5-10.1); CARBON DIOXIDE 26.1 mmol/L (21.0-32.0); CHLORIDE - SERUM 102 mmol/L (98-107); CREATININE - SERUM 1.1 mg/dL (0.6-1.3); GLUCOSE 103 mg/dL (74-106); POTASSIUM - SERUM 3.5 mmol/L (3.5-5.1); SODIUM 139 mmol/L (136-145); UREA NITROGEN 14 mg/dL (7-18); eGFR NON AFRICAN AMERICAN 76 mL/min (90-120)
[~2018-04-07 14:42] MED LIST: ASPIRIN81 MG PO; PLAVIX75 MG PO; PRAVACHOL40 MG PO
== END 2018-04-07 14:43 ==
LOC: D.CATH 14:42
PROVIDERS: Internal Medicine Interventional Cardiology
DX: I25.119 Atherosclerotic heart disease of native coronary artery with unspecified angina pectoris (principal); I10 Essential (primary) hypertension; E78.5 Hyperlipidemia, unspecified; I73.9 Peripheral vascular disease, unspecified; Z01.812 Encounter for preprocedural laboratory examination